=== PATIENT | male | born 1995 | race Caucasian/White ===

== ENCOUNTER 2017-04-15 00:46 | Emergency (ER) | payer OTHER ==
[2017-04-15] MEDS ORDERED: fentaNYL 100 MCG/2 ML INJ ONE (01:42)
[2017-04-15] MEDS ORDERED: fentaNYL 100 MCG/2 ML INJ IVP ONE (01:42)
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
[2017-04-15 02:25] VITALS: BP 121/81; PULSE 68; RESP 16; TEMP 98.4; O2SAT 93
== END 2017-04-15 02:25 | disposition home or self-care (01) ==
PROC: 0RSJXZZ Reposition Right Shoulder Joint, External Approach (ICD-10-PCS; principal; 2017-04-15)
DX: S43.004A Unspecified dislocation of right shoulder joint, initial encounter (principal); W22.01XA Walked into wall, initial encounter
CPT/HCPCS: J3010